=== PATIENT | male | born 1990 | race Caucasian/White ===

== ENCOUNTER 2018-12-13 12:27 | Emergency (ER) | payer BC ==
[~2018-12-13] VITALS: Ht 165.1 cm; Wt 75.9 kg
[2018-12-13 12:35] VITALS: Ht 165.1 cm; Wt 75.9 kg
[2018-12-13] MEDS ORDERED: KETOROLAC 30 MG INJ IV STA (12:49)
[2018-12-13] MEDS ORDERED: SOD CHLORIDE 0.9% 1,000 ML IV STA (12:49)
[2018-12-13] MEDS ORDERED: ACETAMINOPHEN 325 MG TAB PO ONE (13:00)
[2018-12-13] MEDS ORDERED: SODIUM CHLORIDE 0.9% 1L BAG IV* STA (13:02)
[2018-12-13] MEDS ORDERED: CEFTRIAXONE 1 GM/50 ML (PMX) 50 ML IVPB ONE (14:00)
[2018-12-13] MEDS ORDERED: ACET500C5 PO (14:58)
[2018-12-13] MEDS ORDERED: AZIT250T PO (14:58)
[2018-12-13] MEDS ORDERED: IBUP-1561 PO (14:58)
--- NOTE | 2018-12-13 15:02 | ERD ---
ER Documentation Chief Complaint Chief Complaint Fever/chills/producitive cough/back pain x3days HPI 28-year-old male presents with 3-day history of cough, body aches, low back pain, fever. He has productive mucus as well. Denies vomiting, abdominal pain, diarrhea, urinary complaints. ROS All systems reviewed and are negative except as per history of present illness. Medications Home Meds Active Scripts Azithromycin* (Zithromax*) 250 Mg Tablet, 250 MG PO .ZPACK DIRECTED, #6 TAB TAKE 500 MG (2 TABS) THE FIRST DAY THEN 250 MG (1 TAB) DAYS 2-5 Prov:MONALISA LEIJA MD 12/13/18 Ibuprofen* (Motrin*) 400 Mg Tab, 400 MG PO Q6, #15 TAB Prov:MONALISA LEIJA MD 12/13/18 Acetaminophen* (Tylophen*) 500 Mg Capsule, 1 CAP PO Q6H PRN for PAIN AND OR ELEVATED TEMP, #15 CAP Prov:MONALISA LEIJA MD 12/13/18 Allergies Allergies: Coded Allergies: No Known Allergy (Unverified , 12/13/18) PMhx/Soc Medical and Surgical Hx: pt denies Surgical Hx Hx Miscellaneous Medical Probl: Yes (gastritis) Hx Alcohol Use: No Hx Substance Use: No Hx Tobacco Use: No Smoking Status: Never smoker FmHx Family History: No diabetes, No coronary disease, No other Physical Exam Vitals Vital Signs Date Temp Pulse Resp B/P (MAP) Pulse Ox O2 O2 Flow FiO2 Time Delivery Rate 12/13/18 99.7 14:07 12/13/18 102.0 138 22 131/61 97 12:35 (84) Physical Exam Const: No acute distress Head: Atraumatic Eyes: Normal Conjunctiva ENT: Normal External Ears, Nose and Mouth. TMs and oropharynx normal. Neck: Full range of motion. No meningismus. Resp: Clear to auscultation bilaterally. Coarse cough without rales, wheezing or retractions appreciated. Cardio: Regular rate and rhythm, no murmurs Abd: Soft, non tender, non distended. Normal bowel sounds Skin: No petechiae or rashes Back: No midline or flank tenderness Ext: No cyanosis, or edema Neur: Awake and alert Psych: Normal Mood and Affect Result Diagram: 12/13/18 1301 12/13/18 1301 Results 24 hrs Laboratory Tests Test 12/13/18 13:01 12/13/18 15:20 White Blood Count 8.4 10^3/ul Red Blood Count 5.20 10^6/ul Hemoglobin 14.6 g/dl Hematocrit 43.8 % Mean Corpuscular Volume 84.2 fl Mean Corpuscular Hemoglobin 28.1 pg Mean Corpuscular Hemoglobin Concent 33.3 g/dl Red Cell Distribution Width 11.7 % Platelet Count 189 10^3/UL Mean Platelet Volume 9.3 fl Immature Granulocytes % 0.200 % Neutrophils % 77.2 % Lymphocytes % 10.0 % Monocytes % 11.5 % Eosinophils % 0.7 % Basophils % 0.4 % Nucleated Red Blood Cells % 0.0 /100WBC Immature Granulocytes # 0.020 10^3/ul Neutrophils # 6.5 10^3/ul Lymphocytes # 0.8 10^3/ul Monocytes # 1.0 10^3/ul Eosinophils # 0.1 10^3/ul Basophils # 0.0 10^3/ul Nucleated Red Blood Cells # 0.0 10^3/ul Urine Color STRAW Urine Clarity CLEAR Urine pH 6.0 Urine Specific [place] 1.006 Urine Ketones TRACE mg/dL Urine Nitrite NEGATIVE mg/dL Urine Bilirubin NEGATIVE mg/dL Urine Urobilinogen NEGATIVE mg/dL Urine Leukocyte Esterase NEGATIVE Nilam/ul Urine Hemoglobin NEGATIVE mg/dL Urine Glucose NEGATIVE mg/dL Urine Total Protein NEGATIVE mg/dl Sodium Level 143 mmol/L Potassium Level 4.0 mmol/L Chloride Level 101 mmol/L Carbon Dioxide Level 29 mmol/L Anion Gap 13 Blood Urea Nitrogen 13 mg/dl Creatinine 1.20 mg/dl Est Glomerular Filtrat Rate mL/min > 60 mL/min Glucose Level 145 mg/dl POC Venous Lactate 2.2 mmol/L Calcium Level 9.9 mg/dl Lactic Acid Level 0.7 mmol/L Current Medications Medications Dose Sig/Maggie Start Time Status Last (Trade) Ordered Route PRN Stop Time Admin Dose Reason Admin Sodium 1,000 ml @ Q1H STAT 12/13/18 DC 12/13/18 Chloride 1,000 mls/hr IV 12:49 12/13/18 13:01 13:48 650 mg ONCE ONCE 12/13/18 DC 12/13/18 Acetaminophen PO 13:00 12/13/18 13:00 (Tylenol 13:01 Tab) Ketorolac 30 mg ONCE STAT 12/13/18 DC 12/13/18 Tromethamine IV 12:49 12/13/18 13:01 (Toradol) 12:52 Sodium 1,280 ml BOLUS OVER 2 12/13/18 DC 12/13/18 Chloride HOURS STAT 13:02 12/13/18 14:09 (NS) IV* 13:19 Ceftriaxone 50 ml @ ONCE ONCE 12/13/18 DC 12/13/18 Sodium 100 mls/hr IVPB 14:00 12/13/18 14:09 14:29 Procedures/MDM Chest X-ray 1V Interpreted by me: Soft Tissue: No acute abnormalities Bones: No acute abnormalities Mediastinum/Cardiac Silhouette/Lungs: Left perihilar infiltrate. Impression- left perihilar infiltrate Lumbar spine x-ray by patient request for low back pain X-ray LS-Spine 3V Interpreted by me: Bones: No fracture, or lytic lesions Joints: No dislocation Foreign body: None. Impression-normal lumbar spine x-ray Patient meets SIRS criteria for fever and URI symptoms. Initial lactate was 2.2 but improved to 0.7 after hydration, fever control, treatment and observation.. Patient was given 30 mL/kg gram IV normal saline. CBC is normal. Blood culture pending x2. Urine negative except for trace ketones. Basic metabolic panel shows no acute abnormalities. Influenza swab negative. Serial lactate improved. Patient alert, [id number] and observed till fever defervesced after Toradol 30 mg IV and Tylenol. Patient given 1 g Rocephin IV for findings of infiltrate although patient may have viral pneumonia or viral URI as well. Patient was shows no signs or symptoms to suggest severe sepsis. Patient clear lungs and a benign abdomen on serial exam is well-appearing. The patient was stable with no new complaints during the ER course. Clinically, there is no current evidence to suggest meningitis, sepsis, acute abdomen,, stroke, acute coronary syndrome, pulmonary embolism, aortic dissection or any other emergent condition appearing to require further evaluation or hospitalization. Patient counseled regarding my diagnostic impression and care plan. Prior to discharge all questions answered. Pt agrees with treatment plan and understands strict return precautions. Pt is instructed to follow up with primary care provider within 24-48 hours. Precautionary instructions provided including instructions to return to the ER if not improving or for any worsening or changing symptoms or concerns. Disclaimer: Inadvertent spelling and grammatical errors are likely due to EHR/d ictation software use and do not reflect on the overall quality of patient care. Also, please note that the electronic time recorded on this note does not necessarily reflect the actual time of the patient encounter. Departure Diagnosis: Primary Impression: Pneumonia Pneumonia type: due to unspecified organism Laterality: left Lung location: unspecified part of lung Qualified Codes: J18.9 - Pneumonia, unspecified organism Additional Impression: Upper respiratory infection URI type: unspecified URI Qualified Codes: J06.9 - Acute upper respiratory infection, unspecified Condition: Stable Patient Instructions: Pneumonia, Fever Control (Adult) Additional Instructions: X-ray shows possible pneumonia but may be viral illness as well. We will treat for pneumonia in the last. Take Tylenol every 4 hours and ibuprofen every 6 hours as needed for fever. Drink plenty of fluids at home. Recheck for new or worsening symptoms with primary care doctor. MONALISA LEIJA MD Dec 13, 2018 15:02
[2018-12-13 15:54] VITALS: BP 105/61; PULSE 89; RESP 17
== END 2018-12-13 15:57 | disposition home or self-care (01) ==
LOC: FTE 12:27
DX: J18.9 Pneumonia, unspecified organism (principal); J06.9 Acute upper respiratory infection, unspecified
CPT/HCPCS: 36415; 71045; 72100; 80048; 81003; 83605; 85025; 87040; 87400; 96361; 96365; 96366; 96375; 99284; J0696; J1885; J7030